=== PATIENT | female | born 1955 | race Caucasian/White ===

== ENCOUNTER 2018-01-27 15:51 | Outpatient (CLI) | payer BC, OTHER ==
--- NOTE | 2018-01-28 14:54 | Mammography Report ---
DIGITAL SCREENING MAMMOGRAM: 01/27/2018 CLINICAL INDICATION: A 62-year-old for screening. COMPARISON: 09/2016, 07/2015, 05/2015, 06/2013, 06/2012, 04/2010. TECHNIQUE: Routine CC and MLO projections were obtained of the breasts. Bilateral implant displaced views. FINDINGS: The breasts demonstrate scattered fibroglandular densities bilaterally. Punctate, typically benign calcifications are present. Bilateral subpectoral silicone implants are stable. No suspicious masses, clustered microcalcifications, or regions of architectural distortion are identified. IMPRESSION: BENIGN FINDINGS. RECOMMENDATION: Routine annual screening unless otherwise clinically indicated. BIRADS CATEGORY 2 - BENIGN FINDINGS. STANDARD QUALIFYING STATEMENTS: 1. This examination was reviewed with the aid of Computer-Aided Detection (CAD). 2. A negative or benign imaging report should not delay biopsy if clinically suspicious findings are present. Consider surgical consultation if warranted. More than 5% of cancers are not identified by imaging. 3. Dense breasts may obscure an underlying neoplasm. TD: 01/28/2018 14:53
== END 2018-01-27 15:52 | disposition home or self-care (01) ==
LOC: DI.N 15:51
PROVIDERS: ATTEND Family Medicine
DX: Z12.31 Encounter for screening mammogram for malignant neoplasm of breast (principal)
CPT/HCPCS: 77067

== ENCOUNTER 2019-02-23 14:39 | Outpatient (CLI) | payer BC, OTHER ==
--- NOTE | 2019-02-23 15:24 | Mammography Report ---
Reason: SCREENING MAMMO Procedure Date: 02/23/2019 Accession Number: [id number] / [id number] Procedure: MGN - Screening Mammo Dig w/Implants CPT Code: FULL RESULT: EXAM: Screening Mammo Dig w/Implants DATE: 02/23/2019 3:12 PM CLINICAL HISTORY: Screening examination. TECHNIQUE: (B) - Bilateral CC and MLO views were obtained. Bilateral exaggerated CC views were also performed. COMPARISON: 01/27/2018 PARENCHYMAL PATTERN: (A) - The breasts demonstrate scattered fibroglandular densities bilaterally. FINDINGS: Both silicone implants are unremarkable. There are no suspicious masses, calcifications, or areas of distortion. IMPRESSION: Negative examination. BI-RADS category 1. RECOMMENDATION: (ANNUAL) - Recommend routine annual screening mammography. BI-RADS CATEGORY: STANDARD QUALIFYING STATEMENTS: 1. This examination was reviewed with the aid of Computer-Aided Detection (CAD). 2. A negative or benign imaging report should not preclude biopsy if clinically suspicious findings are present. 3. Dense breasts may obscure an underlying neoplasm. 4. This examination was reviewed without the aid of 3D breast imaging (tomosynthesis).
== END 2019-02-23 14:40 | disposition home or self-care (01) ==
LOC: DI.N 14:39
DX: Z12.31 Encounter for screening mammogram for malignant neoplasm of breast (principal)
CPT/HCPCS: 77067

== ENCOUNTER 2019-03-09 08:33 | Outpatient (CLI) | payer BC, OTHER ==
--- NOTE | 2019-03-10 07:53 | XRAY Report ---
Reason: NECK PAIN,CHRONIC Procedure Date: 03/09/2019 Accession Number: [id number] / [id number] Procedure: WCP - Cervical Spine 2 View CPT Code: FULL RESULT: EXAM: CERVICAL SPINE RADIOGRAPHY EXAM DATE: 03/09/2019 08:51 AM. CLINICAL HISTORY: Neck pain, chronic. COMPARISONS: None. TECHNIQUE: 3 views. FINDINGS: Alignment: Straightening of the normal cervical lordosis. Slight dextroscoliosis of the cervical spine. There is grade 1 anterolisthesis of C4 on C5 measuring 1.5 mm. Bones: No acute fracture or bony lesion. Odontoid is intact. Degenerative osteophyte formation is seen largely at C4, C5, C6 and C7. Disks: Mild disk spacing narrowing at C4-C5, and moderate to marked narrowing at C5-C6 and C6-C7. Facets: Mild to moderate cervical facet arthropathy. Soft Tissues: Prevertebral soft tissues are normal. Asymmetric apical pleural thickening left greater than right. IMPRESSION: 1. Degenerative changes of the cervical spine. 3. Grade 1 anterolisthesis of C4 on C5 likely to facet arthropathy. 3. Asymmetrical biapical pleural thickening, left greater than right. RADIA
== END 2019-03-09 08:34 | disposition home or self-care (01) ==
LOC: DI.WCP 08:33
PROVIDERS: ATTEND Family Medicine
DX: M50.321 Other cervical disc degeneration at C4-C5 level (principal); M47.9 Spondylosis, unspecified; M43.12 Spondylolisthesis, cervical region
CPT/HCPCS: 72040

== ENCOUNTER 2019-03-09 08:34 | Outpatient (CLI) | payer BC, OTHER ==
--- NOTE | 2019-03-10 07:52 | XRAY Report ---
Reason: BACK PAIN,THORACIC REGION Procedure Date: 03/09/2019 Accession Number: [id number] / [id number] Procedure: WCP - Thoracic Spine 2 View CPT Code: FULL RESULT: EXAM: THORACIC SPINE RADIOGRAPHY EXAM DATE: 03/09/2019 08:51 AM. CLINICAL HISTORY: Back pain, thoracic region. COMPARISON: CHEST 2 VIEW PA/LAT 10/26/2018. TECHNIQUE: 2 views. FINDINGS: Alignment: Dextroscoliosis of the mid and lower thoracic spine is again seen although slightly more prominent. No spondylolisthesis. Bones: No acute fracture. No bony lesions. Degenerative spurring. Disks: Mild to moderate disk space narrowing throughout the thoracic spine, greatest involving the mid thoracic spine. Soft Tissues: No paravertebral stripe widening. Heart size is normal. Aorta is tortuous. There is left apical pleural thickening asymmetric when compared to the right, which appears more prominent. IMPRESSION: 1. Dextroscoliosis of the midthoracic spine. 2. Mild to moderate degenerative changes of the thoracic spine largely involving the mid thoracic spine. 3. Increased prominence of left apical pleural thickening in the interval compared To 10/26/2018, findings of uncertain significance. Consider either short-term follow-up chest x-ray or CT chest for further detail. RADIA
== END 2019-03-09 08:35 | disposition home or self-care (01) ==
LOC: DI.WCP 08:34
PROVIDERS: ATTEND Family Medicine
DX: M51.34 Other intervertebral disc degeneration, thoracic region (principal); M47.9 Spondylosis, unspecified; M41.84 Other forms of scoliosis, thoracic region
CPT/HCPCS: 72070

== ENCOUNTER 2019-03-09 08:34 | Outpatient (CLI) | payer BC, OTHER ==
--- NOTE | 2019-03-10 07:53 | XRAY Report ---
Reason: LOW BACK PAIN,CHRONIC Procedure Date: 03/09/2019 Accession Number: [id number] / [id number] Procedure: WCP - Lumbar Spine 2 View CPT Code: FULL RESULT: EXAM: LUMBOSACRAL SPINE RADIOGRAPHY EXAM DATE: 03/09/2019 08:51 AM. CLINICAL HISTORY: Low back pain, is present. COMPARISONS: None. TECHNIQUE: 2 views. FINDINGS: Alignment: Mild levoscoliosis of the lumbar spine. No spondylolisthesis. Bones: Five [id number] lumbar vertebral bodies are present. No acute fracture or bony lesion. Mild degenerative osteophyte formation largely at L2, L3 and L5. Disks: Mild to moderate disk space narrowing at L2-L3 and L5-S1 and mild disk space narrowing at L1-L2. Facets: Mild to moderate lumbar facet arthropathy largely in the lower lumbar spine. Sacroiliac Joints: Unremarkable. Soft Tissues: Surgical clips are seen in the right pelvis. No or bowel obstruction. IMPRESSION: 1. Mild to moderate intervertebral disk degenerative changes of the lumbar spine. 2. Levoscoliosis of lumbar spine. RADIA
== END 2019-03-09 08:35 | disposition home or self-care (01) ==
LOC: DI.WCP 08:34
PROVIDERS: ATTEND Family Medicine
DX: M51.36 Other intervertebral disc degeneration, lumbar region (principal); M47.9 Spondylosis, unspecified; M51.37 Other intervertebral disc degeneration, lumbosacral region; M41.86 Other forms of scoliosis, lumbar region; M50.321 Other cervical disc degeneration at C4-C5 level; M43.12 Spondylolisthesis, cervical region; M51.34 Other intervertebral disc degeneration, thoracic region; M41.84 Other forms of scoliosis, thoracic region
CPT/HCPCS: 72040; 72070; 72100

== ENCOUNTER 2019-03-12 15:26 | Outpatient (CLI) | payer BC, OTHER ==
--- NOTE | 2019-03-12 15:56 | XRAY Report ---
Reason: STANDARD CHEST XRAY ABNORMAL Procedure Date: 03/12/2019 Accession Number: [id number] / [id number] Procedure: WCP - Chest 2 View X-Ray CPT Code: 22713 FULL RESULT: EXAM: CHEST RADIOGRAPHY EXAM DATE: 03/12/2019 03:36 PM. CLINICAL HISTORY: Follow-up abnormal thoracic spine x-ray. COMPARISON: Chest x-ray 10/26/2018 and thoracic spine x-ray 03/09/2019 TECHNIQUE: 2 views. FINDINGS: Lungs/Pleura: No focal opacities evident. No pleural effusion. No pneumothorax. Normal volumes. Mediastinum: Heart and mediastinal contours are unremarkable. Other: The asymmetric pleural thickening described on the 03/09/2019 x-ray does not persist on the current study. Mild degenerative change in the spine. IMPRESSION: No acute or significant findings 2-view chest radiography. RADIA
== END 2019-03-12 15:27 | disposition home or self-care (01) ==
LOC: DI.WCP 15:26
PROVIDERS: ATTEND Family Medicine
DX: R91.8 Other nonspecific abnormal finding of lung field (principal)
CPT/HCPCS: 71046

== ENCOUNTER 2020-01-19 10:38 | Outpatient (CLI) | payer BC, OTHER ==
[2020-01-19 18:52] LABS: BASOPHILS # (AUTO) 0.1 10^3/uL (0.0-0.1); EOSINOPHILS # (AUTO) 0.1 10^3/uL (0.0-0.7); EOSINOPHILS % (AUTO) 1.1 %; HGB - HEMOGLOBIN 13.4 g/dL (12.0-16.0); LYMPHOCYTES # (AUTO) 1.9 10^3/uL (1.5-3.5); LYMPHOCYTES % (AUTO) 30.9 %; MEAN CORPUSCULAR HEMOGLOBIN 29.9 pg (27.0-31.0); MEAN CORPUSCULAR VOLUME 93.5 fL (81.0-99.0); MEAN PLATELET VOLUME 10.4 fL (7.9-10.8); MONOCYTES # (AUTO) 0.4 10^3/uL (0.0-1.0); MONOCYTES % (AUTO) 5.8 %; NEUTROPHILS # (AUTO) 3.8 10^3/uL (1.5-6.6); NEUTROPHILS % (AUTO) 60.9 %; PLT - PLATELET COUNT 224 10^3/uL (130-450); RED BLOOD COUNT 4.48 10^6/uL (4.20-5.40); WHITE BLOOD COUNT 6.2 x10^3/uL (4.8-10.8)
[2020-01-19 19:04] LABS: HB2 TOTAL 14.1 g/dL; HEMOGLOBIN A1C 0.57 g/dL; HEMOGLOBIN A1C % 5.9 % (4.6-6.2)
[2020-01-19 19:07] LABS: ALBUMIN 4.4 g/dL (3.2-5.5); ALBUMIN/GLOBULIN RATIO 1.5 (1.0-2.2); ALKALINE PHOSPHATASE 32 IU/L (42-121); ALT ALANINE AMINOTRANSFERASE 14 IU/L (10-60); AST ASPARTATE AMINOTRANSFERASE 15 IU/L (10-42); BILIRUBIN,TOTAL 0.5 mg/dL (0.2-1.0); BUN - BLOOD UREA NITROGEN 29 mg/dL (6-20); CALCIUM 9.3 mg/dL (8.5-10.3); CARBON DIOXIDE - CO2 25 mmol/L (21-32); CHLORIDE 104 mmol/L (101-111); CHOL/HDL RATIO 3.7 (<4.4); CHOLESTEROL 264 mg/dL; CREATININE 0.9 mg/dL (0.4-1.0); GFR - MDRD 63 (>89); GLUCOSE 93 mg/dL (70-100); HDL CHOLESTEROL 71 mg/dL; LDL CHOLESTEROL,CALCULATED 161 mg/dL; LDL/HDL RATIO 2.3 (<4.4); SODIUM 137 mmol/L (135-145); TOTAL PROTEIN 7.3 g/dL (6.7-8.2); VLDL CHOLESTEROL 32 mg/dL
== END 2020-01-19 23:59 | disposition home or self-care (01) ==
LOC: LAB.WCP 10:38
PROVIDERS: ATTEND Family Medicine
DX: I10 Essential (primary) hypertension (principal); E78.5 Hyperlipidemia, unspecified; R73.01 Impaired fasting glucose
CPT/HCPCS: 36415; 80053; 80061; 83036; 83721; 85025

== ENCOUNTER 2020-08-08 08:34 | Outpatient (CLI) | payer BC, MEDICARE ==
--- NOTE | 2020-08-08 16:10 | MRI Report ---
PROCEDURE: Cervical Spine W/O INDICATIONS: Chronic neck pain TECHNIQUE: Noncontrast sagittal T1 spin echo and T2 fast spin echo, sagittal STIR, foraminal oblique sagittal T2 fast spin echo, and axial gradient echo or T2 fast spin echo through the cervical spine. COMPARISON: None. FINDINGS: Image quality: Excellent. Alignment and Curvature: Normal configuration of the craniocervical junction. Straightening of usual cervical lordosis. Otherwise normal alignment. Vertebral body height is maintained. Bone Marrow: No suspicious focal marrow signal abnormality. There is discogenic marrow edema at the o pposing C5-C6 and C6-C7 endplates. Spinal Cord: Normal morphology and signal intensity of the cervical cord. There is no syrinx. No infe rior cerebellar tonsillar ectopia. Regional Soft Tissues: Prevertebral and paraspinous soft tissues are within normal limits. C2-C3: No spinal canal or neural foraminal stenosis. C3-C4: Disc bulge flattens the ventral cord slightly. Facet and uncovertebral hypertrophy contribut e to mild bilateral neural foraminal stenosis, left greater than right. C4-C5: Disc bulge and posterior ossific ridging flattens the ventral thecal sac without mass effect upon the cord. Facet and uncovertebral hypertrophy eccentric to mild left and right neural foraminal stenosis. C5-C6: Disc bulge and posterior osteophyte ridging flattens the ventral thecal sac without mass effe ct upon the cord. Facet and uncovertebral hypertrophy contribute to mild bilateral neural foraminal n arrowing. C6-C7: No spinal canal or neural foraminal stenosis. C7-T1: No spinal canal or neural foraminal stenosis IMPRESSION: Mild multilevel multifactorial degenerative changes. Reviewed by: Yomi Mcarthur MD on 08/08/2020 4:02 PM PDT Approved by: Yomi Mcarthur MD on 08/08/2020 4:02 PM PDT Station ID: [id number]
== END 2020-08-08 08:35 | disposition home or self-care (01) ==
LOC: DI 08:34
PROVIDERS: ATTEND Family Medicine
DX: M43.12 Spondylolisthesis, cervical region (principal); M50.21 Other cervical disc displacement, high cervical region; M25.78 Osteophyte, vertebrae
CPT/HCPCS: 72141

== ENCOUNTER 2021-06-05 13:34 | Outpatient (CLI) | payer MEDICARE, BC ==
--- NOTE | 2021-06-06 13:48 | Mammography Report ---
BILATERAL DIGITAL SCREENING MAMMOGRAM 3D/2D WITH AUGMENTATION: 06/05/2021 CLINICAL: Routine screening. Comparison is made to exams dated: 02/23/2019 mammogram, 01/27/2018 mammogram, 09/30/2016 mammogram, mammogram, and 06/15/2013 mammogram - [facility]. The tissue of both breast s is heterogeneously dense. This may lower the sensitivity of mammography. Bilateral breast implants are stable and intact. No significant masses, calcifications, or other findings are seen in either breast. There has been no significant interval change. IMPRESSION: NEGATIVE There is no mammographic evidence of malignancy. A 1 year screening mammogram is recommended. This exam was interpreted at Station ID: [id number]. NOTE: For mammograms, a report in lay terms will be sent to the patient. Approximately 15% of breast malignancies will not be visualized mammographically. In the management of a palpable breast mass, a negative mammogram must not discourage biopsy of a clinically suspicious lesion. Electronically Signed By: Lex Jaramillo M.D. [facility] [place]:06/05/2021 17:41:01 ACR BI-RADS Category 1: Negative 3341F PARENCHYMAL PATTERN: (D) - The breast(s) demonstrate(s) heterogeneously dense fibroglandular donna mitchell. BI-RADS CATEGORY: (1) - 1 RECOMMENDATION: (ANNUAL) - Recommend routine annual screening mammography. [id number] 1 year screening LATERALITY: (B)
== END 2021-06-05 13:35 | disposition home or self-care (01) ==
LOC: DI 13:34
DX: Z12.31 Encounter for screening mammogram for malignant neoplasm of breast (principal)

== ENCOUNTER 2022-07-09 09:34 | Outpatient (CLI) | payer MEDICARE, OTHER ==
--- NOTE | 2022-07-10 11:09 | Ultrasound Report ---
LIMITED ULTRASOUND OF LEFT BREAST: 07/09/2022 CLINICAL: Patient returns today to evaluate an asymmetry in the left breast. Comparison is made to exams dated: 07/09/2022 mammogram, 06/20/2022 mammogram, 06/05/2021 mammogram, mammogram, 01/27/2018 mammogram, and 09/30/2016 mammogram - [facility]. Ultrasound of the left breast 4-8 o'clock region was performed. Panchal scale images of the real-time examination were reviewed. No significant abnormalities were seen sonographically in the left breast. Specifically, no finding to correspond to the patient's resolved screening mammographic abnormality. IMPRESSION: NEGATIVE There is no sonographic correlate to the patient's screening mammography abnormality and no evidence of malignancy. Return to annual mammogram screening schedule is recommended. Findings and recommendations were conveyed to the patient at time of exam. This exam was interpreted at Station ID: [id number]. Electronically Signed By: Minnie wetzel/:07/09/2022 10:39:22 Ultrasound BI-RADS: 1 Negative BI-RADS CATEGORY: (1) - 1 Mammogram [id number] return to screening LATERALITY: (B)
--- NOTE | 2022-07-10 11:09 | Mammography Report ---
UNILATERAL LEFT DIGITAL DIAGNOSTIC MAMMOGRAM 3D/2D: 07/09/2022 CLINICAL: Patient returns today to evaluate an asymmetry in the left breast. Comparison is made to exams dated: 06/20/2022 mammogram, 06/05/2021 mammogram, 02/23/2019 mammogram, mammogram, and 09/30/2016 mammogram - [facility]. The left breast is heterogeneously dense, which may obscure small masses (category c / 51-75% glandu lar tissue). An additional ultrasound imaging reveals the area of interest in the left breast in the lower aspect on prior exam is not reproduced and presumably represents superimposed breast tissue. No significant masses, calcifications, or other findings are seen in the breast. IMPRESSION: INCOMPLETE: NEEDS ADDITIONAL IMAGING EVALUATION Resolution of screening mammography abnormality with additional views. Ultrasound evaluation to confi rm resolution is recommended and was performed immediately following this exam. Based on the Tyrer Cuzick model (a risk assessment model) the patients lifetime risk is 9.0% and her 10 year risk is 5.3%. According to the ACR, ACS, and NCCN guidelines, an annual breast MRI exam ruben g with mammogram is recommended if the patients lifetime risk is 20% or greater. This exam was interpreted at Station ID: [id number]. NOTE: For mammograms, a report in lay terms will be sent to the patient. Approximately 15% of breast malignancies will not be visualized mammographically. In the management of a palpable breast mass, a negative mammogram must not discourage biopsy of a clinically suspicious lesion. Electronically Signed By: Minnie wetzel/:07/09/2022 10:38:36 ACR BI-RADS Category 0: Incomplete 3340F PARENCHYMAL PATTERN: (D) - The breast(s) demonstrate(s) heterogeneously dense fibroglandular parenchy ma. BI-RADS CATEGORY: (0) - 0 Ultrasound [id number] Immediate follow-up LATERALITY: (B)
== END 2022-07-09 09:35 | disposition home or self-care (01) ==
LOC: DI 09:34
PROVIDERS: ATTEND Nurse Practitioner Family
DX: R92.8 Other abnormal and inconclusive findings on diagnostic imaging of breast (principal)

== ENCOUNTER 2023-02-05 07:04 | Outpatient (CLI) | payer OTHER, MEDICARE ==
[2023-02-05 11:50] LABS: BASOPHILS # (AUTO) 0.1 10^3/uL (0.0-0.1); BASOPHILS % (AUTO) 1.1 %; EOSINOPHILS # (AUTO) 0.1 10^3/uL (0.0-0.7); EOSINOPHILS % (AUTO) 1.4 %; HCT - HEMATOCRIT 43.3 % (37.0-47.0); HGB - HEMOGLOBIN 14.2 g/dL (12.0-16.0); LYMPHOCYTES # (AUTO) 2.6 10^3/uL (1.5-3.5); LYMPHOCYTES % (AUTO) 45.5 %; MEAN CORPUSCULAR HEMOGLOBIN 30.5 pg (27.0-31.0); MEAN CORPUSCULAR HGB CONC 32.8 g/dL (32.0-36.0); MEAN CORPUSCULAR VOLUME 92.9 fL (81.0-99.0); MEAN PLATELET VOLUME 10.3 fL (7.9-10.8); MONOCYTES # (AUTO) 0.4 10^3/uL (0.0-1.0); MONOCYTES % (AUTO) 6.4 %; NEUTROPHILS # (AUTO) 2.6 10^3/uL (1.5-6.6); NEUTROPHILS % (AUTO) 45.6 %; PLT - PLATELET COUNT 194 10^3/uL (130-450); RED BLOOD COUNT 4.66 10^6/uL (4.20-5.40); RED CELL DISTRIBUTION WIDTH 12.4 % (12.0-15.0); WHITE BLOOD COUNT 5.6 x10^3/uL (4.8-10.8)
[2023-02-05 12:13] LABS: ALBUMIN/GLOBULIN RATIO 1.3 (1.0-2.2); ALKALINE PHOSPHATASE 46 IU/L (42-121); ALT ALANINE AMINOTRANSFERASE 17 IU/L (10-60); AST ASPARTATE AMINOTRANSFERASE 16 IU/L (10-42); BILIRUBIN,TOTAL 0.5 mg/dL (0.2-1.0); BUN - BLOOD UREA NITROGEN 24 mg/dL (6-20); CALCIUM 9.1 mg/dL (8.5-10.3); CARBON DIOXIDE - CO2 31 mmol/L (21-32); CHLORIDE 103 mmol/L (101-111); CHOL/HDL RATIO 2.8 (<4.4); CHOLESTEROL 231 mg/dL; CREATININE 0.9 mg/dL (0.4-1.0); GFR - MDRD 62 (>89); GLUCOSE 106 mg/dL (70-100); HDL CHOLESTEROL 82 mg/dL; LDL CHOLESTEROL,CALCULATED 127 mg/dL; LDL/HDL RATIO 1.5 (<4.4); POTASSIUM 3.5 mmol/L (3.5-5.0); SODIUM 141 mmol/L (135-145); TOTAL PROTEIN 7.1 g/dL (6.7-8.2); TRIGLYCERIDES 108 mg/dL; VLDL CHOLESTEROL 22 mg/dL
[2023-02-05 12:22] LABS: THYROID STIMULATING HORMONE 2.61 uIU/mL (0.34-5.60)
== END 2023-02-05 07:05 | disposition home or self-care (01) ==
LOC: LAB.N 07:04
PROVIDERS: ATTEND Nurse Practitioner Family
DX: I10 Essential (primary) hypertension (principal); E78.5 Hyperlipidemia, unspecified
CPT/HCPCS: 36415; 80053; 80061; 83721; 84443; 85025

== ENCOUNTER 2023-04-21 13:23 | Outpatient (CLI) | payer OTHER, MEDICARE | END 2023-04-21 13:24 | disposition home or self-care (01) | LOC: MAC.MOP 13:23 | PROVIDERS: ATTEND Physician Assistant | DX: R00.2 Palpitations (principal) | CPT/HCPCS: 93242 ==

== ENCOUNTER 2023-05-07 08:00 | Outpatient (CLI) | payer OTHER, MEDICARE ==
[2023-05-07 17:52] LABS: BILIRUBIN,URINE NEGATIVE (NEGATIVE); GLUCOSE, URINE (UA) NEGATIVE (NEGATIVE); KETONES,URINE (UA) NEGATIVE (NEGATIVE); LEUKOCYTE ESTERASE, URINE NEGATIVE (NEGATIVE); NITRITE,URINE NEGATIVE (NEGATIVE); OCCULT BLOOD,URINE NEGATIVE (NEGATIVE); PROTEIN,URINE NEGATIVE (NEGATIVE); UROBILINOGEN,URINE 0.2 (NORMAL) E.U./dL (NORMAL)
[2023-05-07 17:53] LABS: CLARITY,URINE CLEAR (CLEAR)
[2023-05-07 18:12] LABS: BACTERIA,URINE Rare /HPF (None Seen); RBC,URINE None Seen /HPF (0-5); SQUAMOUS EPITHELIAL CELL,UR RARE Squamous (<= Few); WBC,URINE 0-3 /HPF (0-5)
== END 2023-05-07 23:59 | disposition home or self-care (01) ==
LOC: LAB.WCP 08:00
PROVIDERS: ATTEND Nurse Practitioner Family
DX: N34.2 Other urethritis (principal)
CPT/HCPCS: 81001; 87086

== ENCOUNTER 2023-05-17 11:30 | Outpatient (CLI) | payer OTHER, MEDICARE | END 2023-05-17 11:31 | disposition home or self-care (01) | LOC: MAC.MOP 11:30 | PROVIDERS: ATTEND Physician Assistant | DX: I47.1 Supraventricular tachycardia (principal); I49.1 Atrial premature depolarization; I49.3 Ventricular premature depolarization | CPT/HCPCS: 93244 ==

== ENCOUNTER 2023-11-17 14:49 | Outpatient (CLI) | payer OTHER, MEDICARE ==
--- NOTE | 2023-11-17 16:03 | DEXA Report ---
PROCEDURE: Dexa Spine and/or Hip INDICATIONS: POST MENOPAUSAL TECHNIQUE: Dual energy x-ray absorptiometry (DXA) was performed on a Approva System. Regions measur ed are the AP Spine, femoral neck, and if needed forearm. COMPARISON: None FINDINGS: Lumbar Spine: Bone Mineral Density 1.262 g/cm/cm,T score 0.7. Left Femoral Neck: Bone Mineral Density 0.983 g/cm/cm, T score -0.4. Left Hip: Bone Mineral Density 0.966 g/cm/cm,T score -0.3. (T score greater or equal to -1.0: NORMAL) (T score from -1.1 to -2.4: OSTEOPENIA) (T score less than or equal to -2.5 to: OSTEOPOROSIS) Impression: By WHO criteria, this patient has normal bone mineral density. Patients with diagnosis of osteoporosis or osteopenia should have regular bone mineral density assess ment. For those eligible for Medicare, routine testing is allowed once every 2 years. Testing frequ ency can be increased for patients who have rapidly progressing disease or for those who are receivin g medical therapy to restore bone mass. Reviewed by: Maddison Balderas MD on 11/17/2023 4:02 PM PST Approved by: Maddison Balderas MD on 11/17/2023 4:02 PM PST Station ID: [id number]
== END 2023-11-17 14:50 | disposition home or self-care (01) ==
LOC: DI 14:49
PROVIDERS: ATTEND Nurse Practitioner Family
DX: Z78.0 Asymptomatic menopausal state (principal)

== ENCOUNTER 2024-02-18 07:14 | Outpatient (CLI) | payer OTHER, MEDICARE ==
[2024-02-18 11:59] LABS: BASOPHILS % (AUTO) 0.9 %; EOSINOPHILS # (AUTO) 0.1 10^3/uL (0.0-0.7); EOSINOPHILS % (AUTO) 1.3 %; HCT - HEMATOCRIT 40.9 % (37.0-47.0); HGB - HEMOGLOBIN 13.5 g/dL (12.0-16.0); LYMPHOCYTES # (AUTO) 1.8 10^3/uL (1.5-3.5); LYMPHOCYTES % (AUTO) 39.1 %; MEAN CORPUSCULAR HEMOGLOBIN 30.1 pg (27.0-31.0); MEAN CORPUSCULAR VOLUME 91.3 fL (81.0-99.0); MEAN PLATELET VOLUME 10.3 fL (7.9-10.8); MONOCYTES # (AUTO) 0.3 10^3/uL (0.0-1.0); MONOCYTES % (AUTO) 7.2 %; NEUTROPHILS # (AUTO) 2.4 10^3/uL (1.5-6.6); NEUTROPHILS % (AUTO) 51.3 %; PLT - PLATELET COUNT 150 10^3/uL (130-450); RED BLOOD COUNT 4.48 10^6/uL (4.20-5.40); RED CELL DISTRIBUTION WIDTH 13.1 % (12.0-15.0); WHITE BLOOD COUNT 4.7 x10^3/uL (4.8-10.8)
[2024-02-18 12:26] LABS: THYROID STIMULATING HORMONE 1.91 uIU/mL (0.34-5.60)
[2024-02-18 12:30] LABS: ALBUMIN 4.1 g/dL (3.2-5.5); ALBUMIN/GLOBULIN RATIO 1.6 (1.0-2.2); ALKALINE PHOSPHATASE 45 IU/L (42-121); ALT ALANINE AMINOTRANSFERASE 11 IU/L (10-60); AST ASPARTATE AMINOTRANSFERASE 12 IU/L (10-42); BILIRUBIN,TOTAL 0.5 mg/dL (0.2-1.0); BUN - BLOOD UREA NITROGEN 29 mg/dL (6-20); CALCIUM 9.5 mg/dL (8.5-10.3); CARBON DIOXIDE - CO2 32 mmol/L (21-32); CHLORIDE 105 mmol/L (101-111); CHOL/HDL RATIO 3.5 (<4.4); CHOLESTEROL 271 mg/dL; GFR - MDRD 55 (>89); GLUCOSE 98 mg/dL (74-104); HDL CHOLESTEROL 78 mg/dL; LDL CHOLESTEROL,CALCULATED 174 mg/dL; LDL/HDL RATIO 2.2 (<4.4); POTASSIUM 4.1 mmol/L (3.5-4.5); SODIUM 140 mmol/L (135-145); TOTAL PROTEIN 6.7 g/dL (6.4-8.9); TRIGLYCERIDES 96 mg/dL (48-352); VLDL CHOLESTEROL 19 mg/dL
== END 2024-02-18 07:15 | disposition home or self-care (01) ==
LOC: LAB.N 07:14
PROVIDERS: ATTEND Nurse Practitioner Family
DX: I10 Essential (primary) hypertension (principal); E78.5 Hyperlipidemia, unspecified
CPT/HCPCS: 36415; 80053; 80061; 83721; 84443; 85025

== ENCOUNTER 2024-04-09 10:58 | Outpatient (CLI) | payer OTHER, MEDICARE ==
[2024-04-09 18:15] LABS: BASOPHILS # (AUTO) 0.1 10^3/uL (0.0-0.1); BASOPHILS % (AUTO) 1.4 %; EOSINOPHILS # (AUTO) 0.1 10^3/uL (0.0-0.7); EOSINOPHILS % (AUTO) 1.8 %; HCT - HEMATOCRIT 43.6 % (37.0-47.0); HGB - HEMOGLOBIN 14.5 g/dL (12.0-16.0); LYMPHOCYTES # (AUTO) 1.8 10^3/uL (1.5-3.5); LYMPHOCYTES % (AUTO) 40.6 %; MEAN CORPUSCULAR HEMOGLOBIN 30.4 pg (27.0-31.0); MEAN CORPUSCULAR HGB CONC 33.3 g/dL (32.0-36.0); MEAN CORPUSCULAR VOLUME 91.4 fL (81.0-99.0); MEAN PLATELET VOLUME 10.1 fL (7.9-10.8); MONOCYTES # (AUTO) 0.3 10^3/uL (0.0-1.0); MONOCYTES % (AUTO) 6.2 %; NEUTROPHILS # (AUTO) 2.2 10^3/uL (1.5-6.6); NEUTROPHILS % (AUTO) 49.8 %; PLT - PLATELET COUNT 200 10^3/uL (130-450); RED BLOOD COUNT 4.77 10^6/uL (4.20-5.40); RED CELL DISTRIBUTION WIDTH 12.8 % (12.0-15.0); WHITE BLOOD COUNT 4.3 x10^3/uL (4.8-10.8)
[2024-04-09 18:28] LABS: ALBUMIN 4.5 g/dL (3.2-5.5); BILIRUBIN,TOTAL 0.8 mg/dL (0.2-1.0); CALCIUM 9.8 mg/dL (8.5-10.3); CREATININE 0.9 mg/dL (0.6-1.3); POTASSIUM 3.8 mmol/L (3.5-4.5); TOTAL PROTEIN 6.7 g/dL (6.4-8.9)
[2024-04-13 21:10] LABS: CARDIOLIPIN IGG <9 GPL U/mL (0-14); CARDIOLIPIN IGM <9 MPL U/mL (0-12)
== END 2024-04-09 10:59 | disposition home or self-care (01) ==
LOC: LAB.N 10:58
PROVIDERS: ATTEND Physician Assistant Medical
DX: D73.5 Infarction of spleen (principal)
CPT/HCPCS: 36415; 80053; 81599; 85025; 85300; 85303; 85598; 85613; 85732; 86147

== ENCOUNTER 2024-04-13 13:05 | Outpatient (CLI) | payer OTHER, MEDICARE | END 2024-04-13 13:06 | disposition home or self-care (01) | LOC: LAB.N 13:05 | PROVIDERS: ATTEND Physician Assistant Medical | DX: D73.5 Infarction of spleen (principal) | CPT/HCPCS: 36415; 85598; 85613; 85732; 86147 ==

== ENCOUNTER 2024-05-05 10:21 | Outpatient (CLI) | payer OTHER, MEDICARE | END 2024-05-05 10:22 | disposition home or self-care (01) | LOC: DI 10:21 | PROVIDERS: ATTEND Physician Assistant Medical | DX: D73.5 Infarction of spleen (principal) | CPT/HCPCS: 93307 ==